=== PATIENT | male | born 1960 | race Caucasian/White ===

== ENCOUNTER → 2020-06-09 | Outpatient (CLI) | payer BC ==
[~2020-06-09] MED LIST: Aspir 8181 MG PO; SILD25T PO
[2020-06-09 12:27] LABS: BASOPHILS ABSOLUTE AUTO 0.04 K/mm3 (0.00-0.23); BASOPHILS PERCENT AUTO 1 % (0-2); EOSINOPHILS PERCENT AUTO 2 % (0-6); Hematocrit 46.4 % (37.0-53.0); Hemoglobin 15.6 g/dL (13.5-17.5); IMMATURE GRAN ABSOLUTE AUTO 0.03 K/mm3 (0.00-0.10); IMMATURE GRAN PERCENT AUTO 1 % (0-1); LYMPHOCYTES ABSOLUTE AUTO 1.68 K/mm3 (0.84-5.20); LYMPHOCYTES PERCENT AUTO 31 % (21-46); MONOCYTES ABSOLUTE AUTO 0.43 K/mm3 (0.16-1.47); MONOCYTES PERCENT AUTO 8 % (4-13); Mean Corpuscular HGB 31.4 pg (26.0-34.0); Mean Corpuscular HGB Conc 33.6 g/dL (31.5-36.5); Mean Corpuscular Volume 93 fL (80-100); Mean Platelet Volume 9.4 fL (9.1-12.4); NEUTROPHILS ABSOLUTE AUTO 3.14 K/mm3 (1.96-9.15); NEUTROPHILS PERCENT AUTO 58 % (41-73); Platelet Count 272 K/mm3 (150-400); RDW Coefficient Variation 12.5 % (11.7-14.2); Red Blood Cell Count 4.97 M/mm3 (4.30-5.90); White Blood Cell Count 5.42 K/mm3 (4.00-11.30)
[2020-06-09 12:34] LABS: Alanine Aminotransfer (ALT/SGP 27 U/L (12-78); Albumin, Blood 4.1 g/dL (3.4-5.0); Albumin/Globulin Ratio 1.2 (0.8-1.8); Alk Phos 66 U/L (40-126); Anion Gap 8 mmol/L (6-16); Aspartate Aminotrans (AST/SGOT 22 U/L (12-37); Bilirubin, Total 0.4 mg/dL (0.1-1.0); Blood Urea Nitrogen 12 mg/dL (8-24); Bun/Creatinine Ratio 11.8 (12.0-20.0); CO2, Blood 26 mmol/L (21-32); Calcium, Blood 9.1 mg/dL (8.5-10.1); Chloride, Blood 104 mmol/L (98-108); Creatinine, Blood 1.02 mg/dL (0.60-1.20); Globulin, Blood 3.5 g/dL (2.2-4.0); Glomerular Filtration Rate >60 (60-); Glucose, Blood 111 mg/dL (70-99); Potassium, Blood 4.1 mmol/L (3.5-5.5); Sodium, Blood 138 mmol/L (136-145); Total Protein, Blood 7.6 g/dL (6.4-8.2)
== END | disposition home or self-care (01) ==
LOC: LAB SHORT 12:21 → LAB 12:21
PROVIDERS: General Practice
DX: N50.89 Other specified disorders of the male genital organs (principal); N50.3 Cyst of epididymis
CPT/HCPCS: 80053; 85025; 87086; G0103

== ENCOUNTER 2020-10-02 09:34 | Day surgery (SDC) | payer BC ==
[~2020-10-02] VITALS: Ht 170.2 cm; Wt 75.0 kg
[2020-10-02] MEDS ORDERED: Aspir 8181 MG PO (10:30)
[2020-10-02] MEDS ORDERED: SILD25T PO (10:31)
--- NOTE | 2020-10-02 11:19 | NUR ---
1055 ASSUMED CARE OF PATIENT FROM YANY ECHEVERRIA. SBAR RECEIVED. PATIENT PREPARED FOR JORJE AND DR. MENA MCDERMOTT. ANESTHESIA AND MINERALOGY PROFESSOR AT THE BEDSIDE. PATIENT ON THE MONITOR, CO2, O2, AND IV IN PLACE.
--- NOTE | 2020-10-02 11:21 | NUR ---
1121 PROCEDURE COMPLETE AND ANESTHESIA SIGNED OFF. PATIENT AWAKES EASILY AND SAT 98 % ON 3LPM BNC. CONTINUE TO MONITOR THROUGH RECOVERY.
--- NOTE | 2020-10-02 11:21 | NUR ---
1100 DR. SAN ARRIVED AND TIME OUT PERFORMED. JORJE STARTED.
--- NOTE | 2020-10-02 11:41 | NUR ---
PATIENT IS FULLY AWAKE AND ROOM AIR SATURATION IS 97%. VVS. IVF SALINE LOCKED.
--- NOTE | 2020-10-02 12:02 | NUR ---
PATIENT DRESSED SELF. DR. SAN AT THE BEDSIDE AND SPOKE AT LENGTH WITH PATIENT. IS OUTSIDE AND WILL MEET THE PATIENT AT THE ENTRANCE. I WILL REVIEW DISCAHRGE INSTRUCTIONS WITH THE PATIENT.
--- NOTE | 2020-10-02 12:02 | NUR ---
PIV REMOVED FROM THE LEFT AC AND PRESSURE DRESSING APPLIED.
--- NOTE | 2020-10-02 12:16 | NUR ---
1215 PATIENT DISCAHRGED HOME WITH ALL BELONINGS AND REVIEWED DISCHARGE INSTRUCTIONS WITH THE AND PATIENT AT THE CAR.
== END 2020-10-02 23:18 | disposition home or self-care (01) ==
LOC: MHTC 09:34
DX: I34.0 Nonrheumatic mitral (valve) insufficiency (principal); I34.1 Nonrheumatic mitral (valve) prolapse
CPT/HCPCS: 93312; 93325; A9270; J2250; J2370; J2704; J7030

== ENCOUNTER 2021-04-17 23:09 | Emergency (ER) | payer BC ==
[~2021-04-17] VITALS: Ht 170.2 cm; Wt 81.7 kg
[2021-04-18] MEDS ORDERED: CARV6.25 PO (00:17)
[2021-04-18] MEDS ORDERED: ACET325 PO (00:17)
[2021-04-18] MEDS ORDERED: Amiodarone HCl200 MG PO (00:17)
[2021-04-18] MEDS ORDERED: OXYC5 PO (00:18)
== END 2021-04-18 00:57 | disposition home or self-care (01) ==
LOC: ER 23:09
DX: R00.2 Palpitations (principal); Z79.82 Long term (current) use of aspirin; Z79.899 Other long term (current) drug therapy
CPT/HCPCS: 93005; 93010; 99284-25

== ENCOUNTER 2021-06-19 14:40 | Emergency (ER) | payer BC ==
[~2021-06-19] VITALS: Ht 170.2 cm; Wt 77.1 kg
[~2021-06-19 14:40] MED LIST changes: +ACET325 PO; +Amiodarone HCl200 MG PO; +CARV6.25 PO; +OXYC5 PO
[2021-06-19] MEDS ORDERED: Cyclobenzaprine5 MG PO (15:06)
[2021-06-19 15:16] LABS: BASOPHILS ABSOLUTE AUTO 0.04 K/mm3 (0.00-0.23); BASOPHILS PERCENT AUTO 1 % (0-2); EOSINOPHILS ABSOLUTE AUTO 0.12 K/mm3 (0.00-0.68); EOSINOPHILS PERCENT AUTO 2 % (0-6); Hematocrit 46.1 % (37.0-53.0); Hemoglobin 15.4 g/dL (13.5-17.5); IMMATURE GRAN ABSOLUTE AUTO 0.04 K/mm3 (0.00-0.10); IMMATURE GRAN PERCENT AUTO 1 % (0-1); LYMPHOCYTES ABSOLUTE AUTO 1.95 K/mm3 (0.84-5.20); LYMPHOCYTES PERCENT AUTO 27 % (21-46); MONOCYTES PERCENT AUTO 8 % (4-13); Mean Corpuscular HGB 30.6 pg (26.0-34.0); Mean Corpuscular HGB Conc 33.4 g/dL (31.5-36.5); Mean Corpuscular Volume 92 fL (80-100); NEUTROPHILS PERCENT AUTO 63 % (41-73); Platelet Count 336 K/mm3 (150-400); RDW Coefficient Variation 12.6 % (11.7-14.2); RDW Standard Deviation 42.9 fL (35.1-46.3); Red Blood Cell Count 5.03 M/mm3 (4.30-5.90); White Blood Cell Count 7.35 K/mm3 (4.00-11.30)
[2021-06-19 15:54] LABS: International Normalized Ratio 1.03; Prothrombin Time Results 10.8 Sec (9.7-11.5)
[2021-06-19 15:57] LABS: Albumin/Globulin Ratio 1.1 (0.8-1.8); Bilirubin, Total 0.4 mg/dL (0.1-1.0); Bun/Creatinine Ratio 10.6 (12.0-20.0); Calcium, Blood 9.1 mg/dL (8.5-10.1); Creatinine, Blood 1.23 mg/dL (0.60-1.20); Globulin, Blood 3.5 g/dL (2.2-4.0); Potassium, Blood 3.8 mmol/L (3.5-5.5); Total Protein, Blood 7.5 g/dL (6.4-8.2)
[2021-06-19] MEDS ORDERED: ASPI325 PO (17:37)
== END 2021-06-19 18:13 | disposition home or self-care (01) ==
LOC: ER 14:40
PROVIDERS: Physician Assistant
DX: G45.9 Transient cerebral ischemic attack, unspecified (principal); Z79.899 Other long term (current) drug therapy; Z79.82 Long term (current) use of aspirin
CPT/HCPCS: 36415; 70450; 70496; 70498; 80053; 85025; 85610; 93005; 93010; 99284-25; A9270; Q9967